=== PATIENT | female | born 1960 | race Caucasian/White ===

== ENCOUNTER 2018-11-25 07:09 | Emergency (ER) | payer MEDICARE, MEDICAID ==
[~2018-11-25] VITALS: Ht 162.6 cm; Wt 142.7 kg
[~2018-11-25 07:09] MED LIST: AMIT-189 PO; ASPI-41 PO; LEVO125T8 PO; METO25TA6 PO; NITR0.4T51 SL; ONDA4TAB6 PO; PANT-47 PO; TRAZ-218 PO; VENL75TA4 PO
[2018-11-25] MEDS ORDERED: nitroGLYCERIN 0.4mg SUBLingual tab SL PRN (07:35)
[2018-11-25] MEDS ORDERED: ondansetron/PF 4mg/2ml inj IV ONE (07:35)
[2018-11-25] MEDS: morphine 4 MG/ML inj SYRINge IV PRN ×3 (07:53→11:30)
[2018-11-25 08:11] LABS: BASOPHILS % (AUTO) 0.5 % (0-1); EOSINOPHILS # (AUTO) 0.2 X10'3 (0-0.9); EOSINOPHILS % (AUTO) 3.1 % (0-6); HEMATOCRIT 38.5 % (35.0-45.0); HEMOGLOBIN 12.9 g/dl (12.0-16.0); LYMPHOCYTES # (AUTO) 1.9 X10'3 (1.1-4.8); LYMPHOCYTES % (AUTO) 24.1 % (21-51); MEAN CORPUSCULAR HEMOGLOBIN 31.4 PG (27.0-31.0); MEAN CORPUSCULAR HGB CONC 33.5 % (33.0-36.5); MEAN CORPUSCULAR VOLUME 93.6 FL (78-98); MEAN PLATELET VOLUME 9.3 FL (7.4-10.4); MONOCYTES # (AUTO) 0.4 X10'3 (0-0.9); MONOCYTES % (AUTO) 5.5 % (2-12); NEUTROPHILS # (AUTO) 5.2 X10'3 (1.8-7.7); NEUTROPHILS % (AUTO) 66.8 % (42-75); PLATELET COUNT 158 X10'3 (140-440); RED BLOOD COUNT 4.11 X10'6 (4.20-5.60); RED CELL DISTRIBUTION WIDTH 13.8 % (11.5-14.5); WHITE BLOOD COUNT 7.8 X10'3 (4.5-11.0)
[2018-11-25 08:16] LABS: ALANINE AMINOTRANSFERASE 40 U/L (12-78); ALBUMIN 3.1 G/DL (3.4-5.0); ALBUMIN/GLOBULIN RATIO 0.7 (1.1-1.5); ALKALINE PHOSPHATASE 84 IU/L (46-116); ANION GAP 9 (8-16); ASPARTATE AMINO TRANSFERASE 58 U/L (10-37); BILIRUBIN,TOTAL 0.5 MG/DL (0.1-1.0); BLOOD UREA NITROGEN 9 MG/DL (7-18); BUN/CREATININE RATIO 8.3 (6.6-38.0); CALCIUM 8.8 MG/DL (8.5-10.1); CHLORIDE 107 MMOL/L (99-107); CREATININE 1.09 MG/DL (0.40-0.90); GLUCOSE 128 MG/DL (70-104); SODIUM 143 MMOL/L (135-145); TOTAL CARBON DIOXIDE 27.1 MMOL/L (24-32); TOTAL PROTEIN 7.4 G/DL (6.4-8.2); eGFR 52 ML/MIN
[2018-11-25 08:23] LABS: LIPASE 164 U/L (73-393); MAGNESIUM 1.9 MG/DL (1.5-2.4)
[2018-11-25 08:28] LABS: PARTIAL THROMBOPLASTIN TIME 26 SECONDS (22-32); PROTHROMBIN TIME 10.5 SECONDS (9.0-12.0)
[2018-11-25] MEDS ORDERED: iohexol 350MG/ML 100ml bottle IV ONE (08:47)
[2018-11-25] MEDS ORDERED: pantoprazole IV 80 MG in normal saline 100ml IV soln 100 ML IV ONE ×4 (10:35)
[2018-11-25] MEDS ORDERED: pantoprazole 40 MG vial IV ONE (11:00)
[2018-11-25] MEDS ORDERED: ketorolac trometh. 30mg/ml inj. IV ONE (11:00)
[2018-11-25 11:32] VITALS: BP 155/98
== END 2018-11-25 11:36 | disposition home or self-care (01) ==
LOC: ER 07:09
DX: K80.80 Other cholelithiasis without obstruction (principal); R10.13 Epigastric pain; E66.01 Morbid (severe) obesity due to excess calories; I25.10 Atherosclerotic heart disease of native coronary artery without angina pectoris; E78.00 Pure hypercholesterolemia, unspecified; I10 Essential (primary) hypertension; I25.2 Old myocardial infarction; E03.9 Hypothyroidism, unspecified; Z95.5 Presence of coronary angioplasty implant and graft; Z88.5 Allergy status to narcotic agent; Z79.82 Long term (current) use of aspirin; Z79.899 Other long term (current) drug therapy
CPT/HCPCS: 36415; 71045; 74174; 80053; 83690; 83735; 83880; 84484; 85025; 85610; 85730; 93005; 96374; 96375; 96376; 99284; C9113; J1885; J2270; J2405; Q9967; J7030

== ENCOUNTER 2019-08-21 13:30 | Emergency (ER) | payer MEDICARE, MEDICAID ==
[~2019-08-21] VITALS: Ht 162.6 cm; Wt 136.4 kg
[~2019-08-21 13:30] MED LIST changes: -TRAZ-218 PO; +TRAZ-251 PO
[2019-08-21 13:38] VITALS: BP 170/86
--- NOTE | 2019-08-21 13:52 | NUR ---
ASSISTING RN WITH PT CARE, PT IS 58 YO FEMALE C/O "THING ON MY TONSIL" X2 MONTHS, LOSING MY VOICE, PT HAS SEEN PMD 3X, 1ST TIME PT RECEIVED AUGMENTIN, FINISHED PRESCRIPTION, PT WAS REFERRED TO ER BUT DECIDED NOT TO COME AT THAT TIME, PT IS RESTING QUIETLY ON GURNEY,WAITING TO BE EVALUATED BY PROVIDER, RESP EVEN AND UNLABORED, SKIN P/W/D
== END 2019-08-21 15:12 | disposition home or self-care (01) ==
LOC: ER 13:31
DX: J35.8 Other chronic diseases of tonsils and adenoids (principal); J31.2 Chronic pharyngitis; K21.9 Gastro-esophageal reflux disease without esophagitis; I25.10 Atherosclerotic heart disease of native coronary artery without angina pectoris; E78.00 Pure hypercholesterolemia, unspecified; I10 Essential (primary) hypertension; I25.2 Old myocardial infarction; E03.9 Hypothyroidism, unspecified; F31.9 Bipolar disorder, unspecified; Z98.61 Coronary angioplasty status; Z88.5 Allergy status to narcotic agent; Z79.82 Long term (current) use of aspirin; Z79.899 Other long term (current) drug therapy
CPT/HCPCS: 99281